=== PATIENT | female | born 1955 ===

== ENCOUNTER 2022-04-13 02:12 | Day surgery (SDC) | payer MEDICARE, OTHER | END 2022-04-13 22:52 | disposition home or self-care (01) | LOC: WOUND 02:12 | DX: L89.312 Pressure ulcer of right buttock, stage 2 (principal); L89.322 Pressure ulcer of left buttock, stage 2; E11.622 Type 2 diabetes mellitus with other skin ulcer; E11.22 Type 2 diabetes mellitus with diabetic chronic kidney disease; I12.9 Hypertensive chronic kidney disease with stage 1 through stage 4 chronic kidney disease, or unspecified chronic kidney disease; N18.31 Chronic kidney disease, stage 3a | CPT/HCPCS: G0463 ==

== ENCOUNTER 2022-04-20 03:39 | Day surgery (SDC) | payer MEDICARE, OTHER | END 2022-04-20 22:38 | disposition home or self-care (01) | LOC: WOUND 03:39 | DX: Z09 Encounter for follow-up examination after completed treatment for conditions other than malignant neoplasm (principal); E11.22 Type 2 diabetes mellitus with diabetic chronic kidney disease; N18.31 Chronic kidney disease, stage 3a; I10 Essential (primary) hypertension | CPT/HCPCS: A9270; G0463 ==